=== PATIENT | female | born 1975 | race Caucasian/White ===

== ENCOUNTER → 2021-09-23 | Outpatient (CLI) | payer OTHER ==
--- NOTE | 2021-09-24 09:31 | RAD ---
US PELVIS W/TV History: Reason: DUB / Spl. Instructions: / History: Comparison: None Technique: Grayscale and color Doppler imaging of the pelvis was performed using transabdominal and t ransvaginal technique. Findings: The uterus measures 9.2 x 4.5 x 4.0 cm. Degraded evaluation of the uterus due to positioning of the u terus. Small nabothian cyst noted. The endometrial stripe measures 6 mm. Bilateral ovaries not identified due to positioning and overlying structures. IMPRESSION: 1. No acute pelvic pathology. 2. Bilateral ovaries not identified. Electronically signed by: Salo Stahl DO (09/24/2021 9:28 AM) [id number]
== END ==
LOC: US 15:55
PROVIDERS: ATTEND Family Medicine
DX: N88.8 Other specified noninflammatory disorders of cervix uteri (principal); N93.9 Abnormal uterine and vaginal bleeding, unspecified
CPT/HCPCS: 76830; 76856